=== PATIENT | female | born 1980 | race Caucasian/White ===

== ENCOUNTER 2022-04-13 17:50 | Emergency (ER) | payer MEDICAID, OTHER ==
[~2022-04-13] VITALS: Ht 167.6 cm; Wt 90.7 kg
--- NOTE | 2022-04-13 18:45 | NUR ---
[place] [id number] [place] PATIENT
--- NOTE | 2022-04-13 19:00 | NUR ---
PT IS STABLE AT THIS TIME AND IS IN ER 3
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
[2022-04-13] MEDS ORDERED: CYCLOBENZAPRINE 10 MG TABLET ONE (19:40)
[2022-04-13] MEDS ORDERED: CYCLOBENZAPRINE 10 MG TABLET PO ONE (20:00)
--- NOTE | 2022-04-13 20:07 | NUR ---
PT GOING TO CT
--- NOTE | 2022-04-13 20:20 | NUR ---
PT RETURNED FROM CT
[2022-04-13] MEDS ORDERED: CYCL5TAB PO (21:24)
[2022-04-13] MEDS ORDERED: KETOROLAC TROMETHAMINE INJ 30 MG/ML VIAL ONE (21:29)
[2022-04-13] MEDS ORDERED: KETOROLAC TROMETHAMINE INJ 60 MG/2 ML VIAL IM ONE (21:30)
[2022-04-13 21:32] VITALS: BP 145/70
--- NOTE | 2022-04-13 21:32 | NUR ---
Patient discharged to home in stable condition. Written and verbal after care instructions given. Patient verbalizes understanding of instruction.
== END 2022-04-13 21:43 | disposition home or self-care (01) ==
LOC: ER 17:55
DX: S29.012A Strain of muscle and tendon of back wall of thorax, initial encounter (principal); Z79.899 Other long term (current) drug therapy; V89.2XXA Person injured in unspecified motor-vehicle accident, traffic, initial encounter; Y93.89 Activity, other specified; Y92.89 Other specified places as the place of occurrence of the external cause; Y99.8 Other external cause status
CPT/HCPCS: 70450-TC; 71045-TC; 72128-TC; 73000-TC; J1885